=== PATIENT | female | born 1985 | race Caucasian/White ===

== ENCOUNTER → 2022-03-28 | Day surgery (SDC) | payer OTHER ==
[~2022-03-28] VITALS: Ht 167.6 cm; Wt 112.5 kg
[~2022-03-28] MED LIST: BUPROPION XL300 MG PO; EMGALITY120 MG/1 M IM; FEOSOL325 MG PO; OMEPRAZOLE40 MG PO; ONDANSETRON HCL4 MG SL; PERCOCET 5-3251 EACH PO; PRILOSEC20 MG PO; TOPIRAMATE100 MG PO
[2022-03-28 08:39] LABS: HCG (URINE) SCREEN NEGATIVE (NEGATIVE)
== END | disposition home or self-care (01) ==
LOC: FAS 08:20
PROVIDERS: Anesthesiology
DX: K80.10 Calculus of gallbladder with chronic cholecystitis without obstruction (principal); K21.9 Gastro-esophageal reflux disease without esophagitis; G47.33 Obstructive sleep apnea (adult) (pediatric); Z88.8 Allergy status to other drugs, medicaments and biological substances; Z98.84 Bariatric surgery status; Z79.899 Other long term (current) drug therapy
CPT/HCPCS: 84703; 93005; J0694; J1170; J2250; J3010; J7120; Q9967